=== PATIENT | male | born 1995 | race Caucasian/White ===

== ENCOUNTER 2019-05-17 21:14 | Emergency (ER) | payer MEDICAID ==
[~2019-05-17] VITALS: Ht 175.3 cm; Wt 106.8 kg
[2019-05-17 21:21] VITALS: BP 145/101
[2019-05-17] MEDS ORDERED: SULF1TAB49 PO (22:51)
[2019-05-17] MEDS ORDERED: CEPH-572 PO (22:51)
== END 2019-05-17 23:19 | disposition home or self-care (01) ==
LOC: ER 21:18
DX: L02.31 Cutaneous abscess of buttock (principal)
CPT/HCPCS: 10060; 99283

== ENCOUNTER 2019-06-01 14:02 | Emergency (ER) | payer MEDICAID ==
[~2019-06-01] VITALS: Ht 175.3 cm; Wt 105.8 kg
[2019-06-01 14:51] LABS: CLARITY,URINE CLEAR (Clear); COLOR,URINE YELLOW (Yellow); GLUCOSE, URINE NEGATIVE (Neg); KETONES,URINE 40 mg/dl (Neg); LEUKOCYTE ESTERASE ,URINE NEGATIVE (Neg); NITRITES, URINE NEGATIVE (Neg); OCCULT BLOOD,URINE MODERATE (Neg); PH,URINE 6.5 (4.8-8.0); PROTEIN,URINE 30 mg/dl (Neg)
[2019-06-01 14:56] LABS: UA COLLECTION TYPE CLN CATCH MIDSTREAM
[2019-06-01 14:58] LABS: BACTERIA,URINE FEW /HPF (Neg); MUCUS STRANDS MODERATE /LPF (Neg); RBC,URINE 20-50 /HPF (0-2); SQUAMOUS EPITHELIAL CELL,UR MANY /LPF (FEW); WBC,URINE 0-4 /HPF (0-4)
[2019-06-01 15:20] LABS: MEAN CORPUSCULAR HGB CONC 33.9 g/dL (33.0-36.5)
[2019-06-01 15:21] LABS: BASOPHILS % (AUTO) 0.1 % (0-1); EOSINOPHILS % (AUTO) 0.1 % (0-6); HEMATOCRIT 45.1 % (42.0-52.0); HEMOGLOBIN 15.3 g/dl (14.0-17.9); LYMPHOCYTES % (AUTO) 8.3 % (21-51); MEAN CORPUSCULAR HEMOGLOBIN 29.8 PG (27.0-31.0); MEAN CORPUSCULAR VOLUME 87.8 FL (78-98); MEAN PLATELET VOLUME 7.3 FL (7.4-10.4); MONOCYTES # (AUTO) 1.1 X10'3 (0-0.9); MONOCYTES % (AUTO) 9.3 % (2-12); NEUTROPHILS # (AUTO) 9.6 X10'3 (1.8-7.7); NEUTROPHILS % (AUTO) 82.2 % (42-75); PLATELET COUNT 277 X10'3 (140-440); RED BLOOD COUNT 5.13 X10'6 (4.70-6.10); RED CELL DISTRIBUTION WIDTH 14.2 % (11.5-14.5); WHITE BLOOD COUNT 11.7 X10'3 (4.5-11.0)
[2019-06-01 15:29] LABS: PARTIAL THROMBOPLASTIN TIME 32 SECONDS (22-32)
[2019-06-01 15:31] LABS: ALANINE AMINOTRANSFERASE 37 U/L (12-78); ALBUMIN 3.6 G/DL (3.4-5.0); ALBUMIN/GLOBULIN RATIO 0.8 (1.1-1.5); ALKALINE PHOSPHATASE 77 IU/L (46-116); ANION GAP 9 (8-16); ASPARTATE AMINO TRANSFERASE 25 U/L (10-37); BILIRUBIN,TOTAL 0.4 MG/DL (0.1-1.0); BLOOD UREA NITROGEN 12 MG/DL (7-18); BUN/CREATININE RATIO 9.8 (5.4-32.0); CALCIUM 9.4 MG/DL (8.5-10.1); CHLORIDE 103 MMOL/L (99-107); CREATININE 1.22 MG/DL (0.60-1.10); GLUCOSE 118 MG/DL (70-104); POTASSIUM 4.3 MMOL/L (3.5-5.1); SODIUM 140 MMOL/L (135-145); TOTAL CARBON DIOXIDE 28.2 MMOL/L (24-32); eGFR 72 ML/MIN
[2019-06-01] MEDS ORDERED: normal saline 1000ML IV soln IVB ONE ×2 (15:45→18:35)
[2019-06-01] MEDS ORDERED: acetaminophen 325mg tablet PO ONE (15:45)
[2019-06-01] MEDS ORDERED: iohexol 300mg/ml 100ml inj. ONE (16:16)
[2019-06-01] MEDS ORDERED: dexamethasone sod phosphate 10mg/ml inj IV STA (19:51)
[2019-06-01] MEDS ORDERED: ONDA4TAB6 PO (19:54)
[2019-06-01 20:14] VITALS: BP 137/94
== END 2019-06-01 20:27 | disposition home or self-care (01) ==
LOC: ER 14:03
DX: B34.9 Viral infection, unspecified (principal); E86.0 Dehydration; R00.0 Tachycardia, unspecified; Z79.899 Other long term (current) drug therapy
CPT/HCPCS: 36415; 71045; 74177; 80053; 81001; 83605; 84145; 85025; 85610; 85730; 87040; 87081; 87502; 87503; 87880; 96361; 96374; 99284; J1100; Q9967

== ENCOUNTER 2019-06-05 22:24 | Emergency (ER) | payer MEDICAID ==
[~2019-06-05] VITALS: Ht 175.3 cm; Wt 106.8 kg
[~2019-06-05 22:24] MED LIST: ONDA4TAB6 PO
[2019-06-05 22:25] VITALS: BP 129/86
[2019-06-05] MEDS ORDERED: dexamethasone sod phosphate 10mg/ml inj IM STA (22:49)
[2019-06-05] MEDS ORDERED: NAPR-56 PO (22:50)
[2019-06-05] MEDS ORDERED: CEPH250T PO (22:50)
[2019-06-05] MEDS ORDERED: LIDO20SO16 PO (22:50)
== END 2019-06-05 23:05 | disposition home or self-care (01) ==
LOC: ER 22:24
DX: J02.0 Streptococcal pharyngitis (principal); Z79.2 Long term (current) use of antibiotics; Z79.899 Other long term (current) drug therapy
CPT/HCPCS: 96372; 99283; J1100

== ENCOUNTER 2020-08-28 00:43 | Emergency (ER) | payer MEDICAID ==
[~2020-08-28] VITALS: Ht 175.3 cm; Wt 104.0 kg
[~2020-08-28 00:43] MED LIST changes: +LIDO20SO16 PO
[2020-08-28 00:50] VITALS: BP 151/92
[2020-08-28] MEDS ORDERED: TETanus/Pertussis (Acell)/Diphther VAC/PF (Tdap-Adult) 0.5ml syringe IMVAC ONE (01:25)
[2020-08-28] MEDS ORDERED: LIDOcaine 1% W/epiNEPHrine 1:200,000 10ml vial IJ ONE (01:25)
[2020-08-28] MEDS ORDERED: LIDOcaine 1% w/epiNEPHrine 1:200,000 30ml vial IJ ONE (01:30)
== END 2020-08-28 02:19 | disposition home or self-care (01) ==
LOC: ER 00:44
DX: S63.251A Unspecified dislocation of left index finger, initial encounter (principal); M79.645 Pain in left finger(s); Z79.899 Other long term (current) drug therapy; X58.XXXA Exposure to other specified factors, initial encounter; Y93.89 Activity, other specified; Y92.89 Other specified places as the place of occurrence of the external cause; Y99.8 Other external cause status
CPT/HCPCS: 29125; 29130; 64450; 73140; 90471; 90715; 99283; 99284

== ENCOUNTER 2020-10-25 01:40 | Emergency (ER) | payer MEDICAID ==
[~2020-10-25] VITALS: Ht 175.3 cm; Wt 90.0 kg
[2020-10-25] MEDS ORDERED: sulfamethoxazole/trimethoprim DS (800/160mg) tablet PO ONE (02:00)
[2020-10-25] MEDS ORDERED: SULF1TAB49 PO (02:02)
[2020-10-25 02:13] VITALS: BP 161/98
== END 2020-10-25 02:14 | disposition home or self-care (01) ==
LOC: ER 01:41
DX: L02.216 Cutaneous abscess of umbilicus (principal); L03.311 Cellulitis of abdominal wall; Z79.899 Other long term (current) drug therapy
CPT/HCPCS: 99283